=== PATIENT | male | born 1950 | race Caucasian/White ===

== ENCOUNTER 2018-04-08 08:45 | Day surgery (SDC) | payer MEDICARE, OTHER, SELFPAY ==
[2018-04-07 10:13] VITALS: BMI 30.7
[2018-04-08] VITALS (7 sets, daily range): BP systolic 123–152; BP diastolic 74–98; PULSE 72–91; RESP 7–22; TEMP 36.1–36.6; O2SAT 91–96; BMI 30.7
[2018-04-08] MEDS: LACTATED RINGERS 1,000 ML 42 ML IV ×2 (09:38→11:10)
--- NOTE | 2018-04-08 09:44 | PM.PREOP ---
Pre-operative Note Interval Note Pre-op Check: Yes History & Physical Reviewed by Physician Changes: No
[2018-04-08] MEDS: fentaNYL 100 MCG/2 ML INJ IV (09:50)
[2018-04-08] MEDS: MIDAZOLAM 2 MG/2 ML VIAL IV (09:50)
[2018-04-08] MEDS: CEFAZOLIN 2 GM/100 ML FROZ.PIGGY IV (10:20)
--- NOTE | 2018-04-08 10:38 | SUR.PREOP ---
Block start time [0930] . Monitoring initiated and maintained throughout procedure. Oxygen and medications given per anesthesiologist instructions. Patient remained stable throughout procedure, no adverse reactions noted. Block end time [1002]. Per Dr Browning. Oxygen 2l/cannula throughout the procedure. Block unsuccessful. hematoma right lateral neck noted by Dr. Miramontes pressure applied no increased swelling noted at completion of procedure.
--- NOTE | 2018-04-08 10:38 | SUR.OPER ---
Beach chair with Alli/Kennedy shoulder positioner. Lower body on padded OR bed. Head in foam padded head cradle, secured with straps. Non-operative arm secured <90 degrees abduction. Pillow under knees. Safety belt at thigh. Cloth tape over blanket over lower legs.
[2018-04-08] MEDS: SODIUM CHLORIDE IRRIG SOLUTION 3,000 ML, EPINEPHrine 1 MG IRR (10:47)
[2018-04-08] MEDS: BUPIVACAINE 0.5% W/ EPI (PF) VIAL 30 ML INJ (10:48)
--- NOTE | 2018-04-08 11:27 | P.OP_ITS ---
Operative Date/Time/Diagnoses Date of procedure: 04/08/18 Time of procedure: 10:00 Pre-op diagnosis: Right shoulder impingement as well as AC joint arthritis Post-op diagnosis: same Procedure & Clinicians Procedure: Right shoulder arthroscopic subacromial decompression, extensive debridement, distal clavicle excision. Same procedure as scheduled: Yes Indications: Right shoulder subacromial impingement as well as painful AC joint arthritis and glenohumeral joint arthritis. Surgeon: Anthony Cintron Principal Technical Writer: Aliyah Prescott Click Yes if Unassisted: No Anesthesia Type: General Operative Notes Findings: Partial tear to the supraspinatus on the articular surface but less than 50%. No sign of any significant bursal sided tears. Arthritic changes to the glenohumeral joint and more significantly the AC joint with inferior osteophytes. Lesion in the acromial arch. Inflamed subacromial and subdeltoid bursa. Some degenerative fraying of the labrum but no sign of any slap tear or significant biceps tearing. No loose bodies. No Bankart tears. Closure Type: primary Specimen(s): none sent Estimated Blood Loss (mL): 5 Blood products transfused: none Procedure in detail: On date of service, Patient was met in the holding area. The operative site was signed and witnessed by the OR staff. The surgeries once again discussed with the patient and any remaining questions they had were answered fully. Patient was taken back to the operating theater and placed on the operating table in a supine position. Great care was taken to ensure that all bony prominences were properly padded. Patient was then placed into the beach chair position. The head and neck were properly positioned and secured. A timeout was performed verifying patient's name, procedure, and the operative site. The upper extremity was then prepped and draped in the normal sterile fashion. Previously, the bony anatomy and portal sites were marked out as well as injected with Marcaine with epinephrine. An 11 blade was used to make an incision in the posterior aspect of the shoulder. The camera was placed, and a diagnostic shoulder scope was performed. Findings listed above. Next under direct visualization, a anterior portal was made. Next the camera was placed into the subacromial space. A lateral portal was obtained under direct visualization. A combination of the shaver and vapor wand , a debridement of the inflamed tissue as well as inflamed bursa was performed. The lateral gutter was also cleaned out. This gave us good visualization of the bursal aspect of the rotator cuff as well as the acromial arch. There was an obvious impingement lesion in the acromial arch. Next we turned our attention to the subacromial decompression. Next, a mechanical rasp was then used to do a subacromial decompression. This allowed us to convert the acromion to a type I acromial. This also allowed us to shave down the bony lesion in the acromial space. The rasp was placed into the lateral portal as well as the anterior portal in order to do a complete subacromial decompression. We next turned our attention to the distal clavicle. Using the shaver in the vapor wand we were able to clean out all the soft tissue around the distal clavicle as well as into the a.c. joint. This gave us good visualization of the arthritic changes to the distal clavicle as well as good of the a.c. joint allowing us to assess our distal clavicle excision. Of the inferior osteophytes coming off the distal clavicle. Using the mechanical rasp in the anterior portal, we were able to remove the inferior osteophytes as well as do a distal clavicle excision. The camera was then placed into the anterior portal which gave us a direct visualization of the a.c. joint allowing us to assess the distal clavicle excision. We then turned our attention to the rotator cuff tear. There was no signs of any bursal sided tears. The shoulder was then taken through range of motion and there was no sign of any additional impingement. Next, the suprascapular nerve was blocked. Patient's shoulder was then cleaned dried and dressed and patient was taken to the PACU in stable condition. Complications: none Condition: stable Disposition: PACU Plan for aftercare: Patient will follow our postoperative protocol for subacromial decompression with distal clavicle excision.
[2018-04-08] MEDS: fentaNYL 100 MCG/2 ML INJ 50 MCG IV (11:39)
[2018-04-08] MEDS: OXYCODONE/ACETAMINOPHEN 5/325 TABLET 1 TAB PO (11:52)
== END 2018-04-08 13:25 | disposition home or self-care (01) ==
PROVIDERS: Visit Provider Orthopaedic Surgery
PROC: (CPT 29805; principal; 2018-04-08 10:00)
DX: M75.41 Impingement syndrome of right shoulder (principal); M19.011 Primary osteoarthritis, right shoulder; E03.9 Hypothyroidism, unspecified; I10 Essential (primary) hypertension; F33.41 Major depressive disorder, recurrent, in partial remission
CPT/HCPCS: 29823; 29826; J0171; J0330; J0690; J1100; J1170; J2250; J2405; J2704; J3010

== ENCOUNTER → 2019-06-07 13:01 | Outpatient (CLI) | payer MEDICARE, OTHER, SELFPAY ==
--- NOTE | 2019-06-07 | DI.RAD.S_ITS ---
PROCEDURE: FL BARIUM SWALLOW W SPEECH INDICATIONS: Other dysphagia TECHNIQUE: Examination was conducted in conjunction with speech pathology per standard protocol. In the lateral projection, filming was performed of the patient swallowing. AP projection filming may also be performed with patient swallowing. COMPARISON: None. FINDINGS: Function: The oral preparatory phase appears normal, with proper containment. The subsequent oral propulsive phase, pharyngeal phase, and esophageal phase of swallowing also appear normal with all proffered substances. No laryngotracheal penetration or aspiration. No pathologic vallecular pooling. Morphology: No cricopharyngeal bar is identified. No cervical esophageal webs. No Zenker's diverticulum. No strictures. IMPRESSION: Normal examination, a source of current dysphagia is not seen. Please also refer to the dedicated speech therapy swallowing evaluation report that would be independently generated. Dictated by: Micah Muñiz M.D. on 06/07/2019 at 14:16 Approved by: Micah Muñiz M.D. on 06/07/2019 at 14:17
--- NOTE | 2019-06-09 13:05 | ST.SWALLOW ---
Visit Care Team Role Provider Type Romina Goins MD Primary Care Provider Non-Staff Referring Provider Specialty: Family Practice Address: [address] [place] [address], [id number] Email: Endy Hernandez MD Attending Provider Physician Specialty: Ear, Nose, Throat Address: [address] [place] [address], [id number] Email: [email or web address] Modified Barium Swallow Study WASTEWATER OPERATOR Modified Barium Swallow Study Start: 06/07/19 14:15 Freq: Status: Active Protocol: Document 06/07/19 14:16 LNK (Rec: 06/07/19 14:25 LNK [email or web address]) Modified Barium Swallow Study Total Time Visit Start Time 13:30 Visit Stop Time 13:50 Total Visit Minutes 20 Visit Information Plan of Care Dates 05/18/19-08/16/19 Referral Referring Physician Endy Hernandez MD, ENT Reason for Referral dysphagia Setting Setting Outpatient Care Patient Information Identification Type Name,Picture Patient History Pt reports a history of dysphagia following a tonsilectomy/UPPP in 1999. On 12/14/18, pt had a MBS study completed at [facility]. Swallowing therapy was recommended, but pt did not follow up. Laryngoscopy performed by ENT indicated all structures and functioning to be WNL. Pt notes that he does not have difficulty with solids when eating. He is only able to drink liquids in very small sips. if he drinks a larger amount he will choke and he will cough for a long time A clinical swallowing assessment was completed on 05/18/19. During that evaluaton swallowing thin liquids in a small amount did not elicit coughing. However when asked to drink a normal sized swallow, the pt immediately presented with a choke, wet voicing and gulps to try to swallow. This was followed by significant coughing. His vocal quality was very wet as though water had entered the airway and was on or near the vocal folds. Suspect that he aspirated at that point. Recommended MBSS to determine aspiration risk. [ End ] Subjective Observations Pt was seated in the fluoroscopy chair. Procedures and instructions were described to the pt. He indicated that he understood and agreed to proceed. Patient Positioning Position View Lateral Imaging Lateral View Textures Administered Trials Presented Thin Liquid via Spoon,Thin Liquid via Cup,Thin Liquid via Straw,[place] Liquid via Spoon ,[place] Liquid via Cup,Pudding Thick Liquid via Spoon, Regular Textures Oral Phase Source: MBSIMP (TM) (C) Bolus Specific Scoring Grid Lip Closure WFL Tongue Control During Bolus Hold WFL Bolus Prep/Mastication WFL Bolus Transport/Lingual Motion WFL A/P Lingual Propulsion Delay No Oral Residue Mild Impairment Residue Clearing Mild Impairment Nasal Regurgitation No Additional Oral Phase Observations Pt's OM examination noted structures and diadochokinesis to be WNL. Pt has natural teeth in good hygiene. Pharyngeal Phase Source: MBSIMP (TM) (C) Bolus Specific Scoring Grid Delayed Initiation of Pharyngeal Swallow No Soft Palate Elevation WFL Tongue Base Strength/Range of Motion Moderate Impairment Residue Along the Tongue Base Yes: Consistent across all trials Clearance of Residue Along Tongue Base Moderate Impairment Laryngeal Elevation WFL Anterior Hyoid Movement Severe Impairment Epiglottic Range of Motion Moderate Impairment Vallecular Residue Yes: Consistent across all trials Clearance of Vallecular Residue Moderate Impairment Laryngeal Vestibular Closure Moderate Impairment Pharyngeal Stripping Wave Moderate Impairment Posterior Pharyngeal Wall Residue Yes: Consistent across all trials Clearance of Posterior Pharyngeal Wall Moderate Impairment Residue Upper Esophageal Sphincter Opening Moderate Impairment Residue in the Pyriform Sinuses Unable to observe pyriform sinuses Esophageal Clearance Upright Position Minimal Impairment Pharyngoesophageal Backflow Observed Residue noted at UES consistent across all trials Additional Pharyngeal Phase Observations The pt's soft palate made adequate pharyngeal contact to seal the nasopharynx. The overall bulk of the velum was reduced secondary to UPPP. Throughout the MBSS there were pharyngeal anatomical differences noted. There was consistent pooling at the posterior base of tongue secondary to weak linguapharyngeal contact. The epiglottis appeared to be smaller than expected and the UES seemed to be located higher in the pharynx than typical, at the horizontal level of the arytenoids. Pyriform sinuses were not observed. Delayed swallow reflex with premature spillage to the valeculla was observed. Linguapharyngeal contact was weak with valecullar pooling post-swallow. Laryngeal elevation was adequate. However, there was no forward hyoid movement directly impacting epiglottal inversion and UES opening. Epiglottal inversion varied from minimal to partially complete, depending on the bulk of the bolus. Laryngeal penetration was observed with all liquid trials as well as residual flow from the valeculla. Penetration increased with larger bolus sizes. Residue was noted on the anterior wall of the thyroid cartilage. Cued cough or throat-clearing was ineffective in clearing the residue. Pharyngeal residue was observed at the base of tongue, valeculla, posterior pharyngeal wall, within the vestibule, and within the EUS opening. No penetration was observed with solid trials. No aspiration was observed. The UES residue may be due to result of reduced duration of the UES opening/extension, restricting the amount of bolus that can pass to the esophagus. The pt has reported that lately, when he swallows, he needs to swallow harder than usual. A/P View Clinical Impressions Dysphagia Type moderate to severe pharyngeal dysphagia Findings The pt is at high risk for aspiration even though aspiration was not directly observed during this MBSS. The aspiration risk appears to be related to the position of the UES at the level of the laryngeal vestibule/arytenoids . If the UES is restricting flow to the esophagus, there would be overflow , which increases the risk of aspiration. An alternative possibility may be related to the pt's UPPP surgery. Assuming there is scar tissue from the procedure , there is likely reduced sensation in the palatopharynx , which could effect awareness of the bolus. The pt noted that while he often chokes on water, he can drink beer without difficulty. The beer' s carbonation would provide sensory information to aid in bolus control. Recent research has been presented supporting the benefit of cold, sour and carbonated beverages on pharyngeal contraction and UES opening . Swallow therapy is recommend to teach the pt compensatory swallow techniques. Increased frequency and intensity of treatment is recommended. Additionally, NNME is recommended in conjunction with swallow exercises and compensatory strategies. The goal of therapy would be to strengthen the base of tongue/ linguapharyngeal contact. This woud target movement of the hyoid bone, greater epiglottal inversion/seal of vestibule, increasing the hyoid movement and increasing UES opening for bolus flow. Thereby reducing the risk for aspiration. Rehabilitation Potential Good Patient Appropriate for Therapy Yes Recommendations Treatment Plan Therapy Recommendations Outpatient Speech Therapy, Lingual Exercises,Base of Tongue Exercises,Compensatory Strategy Education,Other Additional Therapy Recommendations NNME therapy Recommended Referrals Primary Care Physician,GI Consult,ENT Consult Compensatory Strategies Recommendations Supersupraglottic Swallow, Mendelsonn Maneuver,Small Bites and Sips Short Term Goals Pt will participate in a structured swallow therapy program designed to increase laryngopharyngeal strength and range of motion reducing aspiration risk. The pt will report fewer instances of choking with water.
== END ==
PROVIDERS: PCP Family Medicine; Referring Provider Family Medicine; Visit Provider Otolaryngology
DX: R13.19 Other dysphagia (principal)
CPT/HCPCS: 74230; 92611

== ENCOUNTER 2019-06-24 14:30 | Outpatient (RCR) | payer MEDICARE, OTHER, SELFPAY ==
--- NOTE | 2019-05-18 18:33 | ST.IPCSEOM ---
Visit Care Team Role Provider Type Romina Goins MD Primary Care Provider Non-Staff Specialty: Family Practice Address: [address] [place] [address], [id number] Email: Endy Hernandez MD Attending Provider Physician Referring Provider Specialty: Ear, Nose, Throat Address: [address] [place] [address], [id number] Email: [email or web address] Diagnoses Other dysphagia (05/18/19) Past Medical History (Last Updated 04/07/18 @ 10:17 by Janny Pan RN) Arthritis of right acromioclavicular joint (Acute Medical) Arthritis of right shoulder region (Acute Medical) Depression (Acute Medical) HTN (hypertension) (Acute Medical) Impingement syndrome of right shoulder (Acute Medical) Osteoarthritis (Acute Medical) Thyroid disease (Acute Medical) Speech-Language Pathology Swallow Evaluation LOAN BROKER Clinical Swallow Evaluation Start: 05/18/19 18:09 Freq: Status: Active Protocol: Document 05/18/19 18:09 LNK (Rec: 05/18/19 18:33 LNK [email or web address]) Clinical Swallow Evaluation Session Time Visit Start Time 14:30 Visit Stop Time 15:20 Total Visit Minutes 50 Visit Information Visit Number 1 Plan of Care Dates 05/18/19-08/16/19 Referral Referring Physician Endy Hernandez MD, ENT Reason for Referral dysphagia Setting Assessment Location Outpatient Care Visit Type Note Type Initial Evaluation Next Note Type Next Note Type Re-Evaluation Patient Information Identification Type Name,Picture History Pt reports a history of dysphagia following a tonsillectomy/UPPP in 1999. On , pt had a MBS study completed at [facility]. Swallowing therapy waa recommended, but pt did not follow up. Laryngoscopy performed by ENT indicated all structures and functioning to be WNL. Pt notes that he does not have difficulty with solids when eating. He is only able to drink liquids in very small sips. if he drinks a larger amount he will choke and he will cough for a long time Subjective Observations Pt arrived on time and was taken to a treatment room. Evaluation Liquids Trialed Thin Administration Type Cup Single Sip,Controlled Cup Sip Oral Impairment WNL Oral Phase Comments View of the pt's velum/pharynx indicated a large area A-P. Additionally there was no uvula, the velum was a smooth arch with anterior faucial pillars missing. No hypernasal resonance was observed. The pt reported that liquids do not enter nor come out of his nose when drinking. Pharyngeal Impairment Severely Impaired Pharyngeal Strategies Sitting Upright (90 deg),Small Bites and Sips Pharyngeal Phase Comments Upon palpation, the pt's hyolaryngeal system appears to elevate and has forward movement of the hyoid bone. He presents with a very audible swallow. His swallow of thin liquids in a small amount did not elicit coughing . However when asked to drink a normal sized swallow, the pt immediately presented with a choke, wet voicing and gulps to try to swallow. This was followed by significant coughing. His vocal quality was verywet as though water had entered the airway and was on or near the vocal folds. Suspect that he aspirated at that point. Pt reports that if he tries to tuck his chin, he is unable to swallow at all. Turning his head left or right when swallowing are ineffective. Recommend an MBS as soon as possible to determine the status of the pt's pharyngeal swallow as well as to determine aspiration risk. Findings Dysphagia Type pharyngeal Diet Recommendations Comments continue current diet Aspiration Precautions Recommended Precautions Small Bites/Sips Treatment Plan Placement Recommendations after Outpatient Therapy Discharge Appropriate for Therapy Yes Therapy Recommendations Recommend MBSS as soon as possible Dysphagia therapy POC to be determined after MBSS LOAN BROKER Follow Up after MBSS Referrals/Other Recommended Referrals Primary Care Physician,ENT Consult
--- NOTE | 2019-06-24 15:45 | ST.IPDYTX ---
Visit Care Team Role Provider Type Romina Goins MD Primary Care Provider Non-Staff Specialty: Family Practice Address: [address] [place] [address], [id number] Email: Endy Hernandez MD Attending Provider Physician Referring Provider Specialty: Ear, Nose, Throat Address: [address] [place] [address], [address] Email: [email or web address] SAP PORTAL ARCHITECT Dysphagia Treatment SAP PORTAL ARCHITECT Dysphagia Treatment Start: 05/18/19 18:09 Freq: Status: Active Protocol: Document 06/24/19 15:28 LNK (Rec: 06/24/19 15:45 LNK [email or web address]) Dysphagia Treatment Session Time Visit Start Time 14:30 Visit Stop Time 15:30 Total Visit Minutes 60 Visit Information Visit Number 05/18 Plan of Care Dates 05/18/19-08/16/19 Setting Assessment Location Outpatient Care Visit Type Note Type Treatment Note Next Note Type Next Note Type Treatment Note Patient Information Identification Type Name,Picture Subjective Observations Prabhakar and his partner were seen for dysphagia therapy following MBSS. They reviewed by MBSS video with this SAP PORTAL ARCHITECT describing the images. Initially when seen on 05/18/19 Prabhakar reported a history of dysphagia following a tonsilectomy/UPPP in 1999. On 12/14/18, pt had a MBS study completed at [facility]. Swallowing therapy waa recommended, but pt did not follow up. Treatment Treatment Activities No PO trials were assessed. The MBSS was reviewed, pointing out several penetrations into the laryngeal vestibule. The MBSS results indicated, Prabhakar's swallow of thin liquids in a small amounts did not elicit coughing. However when asked to drink a normal sized swallow, the pt immediately presented with a choke, wet voicing and gulps to try to swallow. This was followed by significant coughing. His vocal quality was very wet as though water had entered the airway and was on or near the vocal folds. Suspect that he aspirated at that point. Assessment Patient Response to Treatment Excellent Rehab Potential Excellent Diet Recommendations Recommendations Continue Current Diet Aspiration Precautions Recommended Precautions Small Bites/Sips,Double Swallow Treatment Plan Appropriate for Continued Therapy No Dysphagia Goals Prabhakar was able to identify the instances of penetration. He was able to understand how penetration into the laryngeal vestibule is related to his frequent throat-clearing. Following the review of the video, three linguapharyngeal exercises were recommended: the Shaker, Back of tongue exercise and Rapid Jaw Opening . Each exercise was demonstrate followed by the pt executing each successfully. WIll follow pt 1x/week for three weeks and then extend more weeks between session.
--- NOTE | 2019-11-08 10:39 | ST.IPDYTX ---
Visit Care Team Role Provider Type Romina Goins MD Primary Care Provider Non-Staff Specialty: Family Practice Address: [address] [place] [address], [id number] Email: Endy Hernandez MD Attending Provider Physician Referring Provider Specialty: Ear, Nose, Throat Address: [address] [place] [address], [address] Email: [email or web address] LEGAL SPECIALIST Dysphagia Treatment LEGAL SPECIALIST Dysphagia Treatment Start: 05/18/19 18:09 Freq: Status: Active Protocol: Document 11/08/19 10:37 LNK (Rec: 11/08/19 10:38 LNK [email or web address]) Dysphagia Treatment Patient Information Subjective Observations Prabhakar and his partner were seen for dysphagia therapy following MBSS. They reviewed by MBSS video with this LEGAL SPECIALIST describing the images. Initially when seen on 05/18/19 Prabhakar reported a history of dysphagia following a tonsilectomy/UPPP in 1999. On 12/14/18, pt had a MBS study completed at [facility]. Swallowing therapy waa recommended, but pt did not follow up. Treatment Plan Appropriate for Continued Therapy No Dysphagia Goals Discharge from therapy. Prabhakar has not been seen since .
== END 2019-11-09 10:57 ==
LOC: SP 14:30
PROVIDERS: PCP Family Medicine; Referring Provider Otolaryngology; Visit Provider Otolaryngology
DX: R13.19 Other dysphagia (principal)
CPT/HCPCS: 92526; 92610

== ENCOUNTER → 2022-01-20 15:11 | Outpatient (CLI) | payer MEDICARE, OTHER, SELFPAY ==
--- NOTE | 2022-01-20 | DI.MRI.S_ITS ---
PROCEDURE: MR WRIST LT WO CON INDICATIONS: CARPAL TUNNEL SYNDROME TECHNIQUE: Noncontrast coronal proton density fast spin echo and T2 fast spin echo with fat saturation; coronal 3-D gradient echo, axial T1 spin echo and T2 fast spin echo with fat saturation, sagittal T1 spin echo through the wrist. COMPARISON: None. FINDINGS: Image quality: Excellent. Bones and cartilage: The carpal bones are normally aligned. No bone marrow contusions or fractures. No evidence for avascular necrosis. Osteoarthritic changes are noted throughout wrist joints with joint space narrowing and subchondral sclerosis. Carpal ligaments: The scapholunate and lunotriquetral ligaments appear intact. In the absence of intra-articular contrast, the extrinsic carpal ligaments are not well identified. On sagittal images, the pisohamate ligament appears intact. Triangular fibrocartilage complex: Degenerative changes are noted within triangular fibrocartilage. No definite TFCC tear is seen. The adjacent meniscal homolog appears normal in the absence of intra-articular contrast. The extensor carpi ulnaris tendon is normal in location and morphology. Tendons and soft tissues: There is palmar bowing of the flexor retinaculum. Median nerve flattening the level of the flow of hamate is seen. Increased cross-sectional area of topple tunnel is noted at the level of carpal tunnel all it. Mild edema is also seen within carpal tunnel. The ulnar nerve appears normal within Guyon's canal. All six extensor tendon compartments demonstrate normal morphology, without pathologic tendon sheath fluid. No soft tissue ganglion cysts. IMPRESSION: 1. Constellation of finding is consistent with patient's clinical diagnosis of carpal tunnel syndrome. 2. Mild wrist joint osteoarthritic changes. No fracture or dislocation. No evidence of a vascular necrosis. 3. Intrinsic and extrinsic wrist ligaments are grossly intact. 4. Degenerative changes are noted in triangular fibrocartilage. No definite TFC tear. 5. Extensor and flexor tendons are normal in size and signal intensity. Dictated by: Lars Peralta M.D. on 01/20/2022 at 21:12 Approved by: Lars Peralta M.D. on 01/20/2022 at 21:31
== END ==
PROVIDERS: PCP Student in an Organized Health Care Education/Training Program; Referring Provider Orthopaedic Surgery; Visit Provider Orthopaedic Surgery
DX: G56.02 Carpal tunnel syndrome, left upper limb (principal)
CPT/HCPCS: 73221

== ENCOUNTER → 2024-08-04 09:16 | Outpatient (CLI) | payer MEDICARE, OTHER, SELFPAY ==
--- NOTE | 2024-08-04 09:23 | DI.CT.S_ITS ---
PROCEDURE: CT SOFT TISSUE NECK W CON INDICATIONS: DYSPHAGIA TECHNIQUE: After the administration of intravenous contrast, 3.0 mm axial sections acquired from the sella to the aortic arch. Additional oblique axial 3.0 mm sections acquired through the pharynx. 3 mm thick coronal and sagittal reformats were generated. For radiation dose reduction, the following was used: automated exposure control. COMPARISON: None. FINDINGS: Image quality: There is artifact associated with the metallic hardware. Artifact from the metallic hardware is reduced by metal reconstruction algorithm. There is streak artifact seen through the level of the shoulders. Lymph nodes: No enlarged lymph nodes seen throughout the neck. Vessels: Visualized vasculature appears patent. Neck spaces: The oropharynx, nasopharynx, and pharynx demonstrate no mucosal lesions. The vocal cords, false vocal cords, pyriform sinuses, epiglottis, vallecula, and tongue base all appear normal. Extramucosal spaces appear unremarkable. Glands: The parotid and submandibular glands appear normal. Thyroid gland demonstrates no significant abnormality. Miscellaneous: Visualized brain and orbits appear normal. Lung apices appear clear. Superficial soft tissues appear normal. Bones: No suspicious bony lesions. Visualized sinuses and mastoids appear unremarkable. Cervical spine degenerative changes are seen, with significant bridging anterior osteophytes at C5-C6. IMPRESSION: No masses or enlarged lymph nodes are seen. Significant bridging anterior osteophytes can be seen at C5-C6. Dictated by: Nestor Sy M.D. on 08/06/2024 at 11:51 Approved by: Nestor Sy M.D. on 08/06/2024 at 11:53
[2024-08-04 10:05] LABS: Estimated Glomerular Filt Rate > 60 mL/min (>60)
--- NOTE | 2024-08-04 13:02 | ST.SWALLOW ---
Visit Care Team Role Provider Type Essie Nettles MD Primary Care Provider Non-Staff Specialty: Medical Address: [address] [place] [address], [id number] Email: Endy Hernandez MD Attending Provider Physician Referring Provider Specialty: Ear, Nose, Throat Address: [address] [place] [address], [id number] Email: [email or web address] Modified Barium Swallow Study SECOND OFFICER Modified Barium Swallow Study Start: 08/04/24 11:08 Freq: Status: Active Protocol: Document 08/04/24 11:10 LNK (Rec: 08/04/24 13:01 LNK Desktop) Modified Barium Swallow Study Total Time Visit Start Time 10:00 Visit Stop Time 10:45 Total Visit Minutes [address] Hernandez, ENt Setting Setting Outpatient Care Patient Information Identification Type Name,Date of Patient History Pt seen for a Modified Barium Swallow Study by Dr. Hernandez. 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 Pt described frequent throat clearing/coughing when eating or drinking. He stated he has a lot of mucous and PND due to allergies. Pt also noted he has difficulty swallowing pills, large bites of food, meats and liquids, describing a bolus sensation near the sternal notch. In 2020, pt was diagnosed with PD. He denies seeing any rehab therapist (i. e., ST, OT, PT). Pt had MBSS on 06/07/2019 that indicated pharyngeal dysphagia with pt at risk for aspiration secondary to base of tongue weakness and pharyngeal phlegm build-up. Subjective Observations Pt was seated in the fluoroscopy chair with directions and procedures described for him. He indicated he understood and agreed to proceed. Patient Positioning Position View Lat-A/P Imaging Lateral View Textures Administered Trials Presented Extremely Thick Liquid via Spoon (IDDSI 4),Regular (IDDSI 7) Barium Tablet Yes The IDDSI Framework Protocol: IDDSI.1 Oral Impairment Source: The Modified Barium Swallow Impairment Profile (MBSImP??) Lip Closure Interlabial escape; no progression to anterior lip Tongue Control During Bolus Hold Cohesive bolus between tongue to palatal seal Bolus Preparation/Mastication Timely & efficient chewing & mashing Bolus Transport/Lingual Motion Brisk tongue motion Oral Residue Complete oral clearance Location Tongue Initiation of Pharyngeal Swallow Bolus head at posterior laryngeal surface of epiglottis Additional Oral Impairment Observations *OME and DKS were observed to be WNL. *Dentition natural and in good hygiene *Mastication observed with rotary chew pattern. *Good bolus formation, control and AP transition. *Velopharyngeal closure was WNL. 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 Velopharyngeal seal appears to be functional. Pt reports no nasal regurgitation of solids/liquids. Voice is not hypernasal. Pharyngeal Impairment Source: The Modified Barium Swallow Impairment Profile (MBSImP??) Soft Palate Elevation No bolus between soft palate & pharyngeal wall Laryngeal Elevation Part.sup.move.thyroid cart/ part.approx.arytenoids to epiglot.petiole Anterior Hyoid Excursion No anterior movement Epiglottic Movement No inversion Laryngeal Vestibular Closure Incomplete; narrow column air/ contrast in laryngeal vestibule Pharyngeal Stripping Wave Present - complete Pharyngoesophageal Segment Opening Complete distention & complete duration; no obstruction of flow Tongue Base Retraction Narrow column of contrast/air betwn tongue base & post. pharyngeal wall Pharyngeal Residue Complete pharyngeal clearance Location Valleculae Additional Pharyngeal Impairment *Reduced base of tongue Observations retraction strength *Reduced laryngeal elevation with no hyoid movement noted *No epiglottal inversion across all trials *Laryngeal penetration of contrast x 4 with laryngeal residue to the vocal folds (1- 8 Penetration Aspiration Scale rating =5) *Pt able to clear pooled secretions with throat clearing *No overt tracheal aspiration observed *Pt able to hold his breath indicating some vocal fold adduction/airway protection A/P View Textures Administered Trials Presented Thin Liquid via Spoon (IDDSI 0 ) The IDDSI Framework Protocol: IDDSI.1 A/P View Observations Pharyngeal Contraction Complete Esophageal Clearance Upright Position Esophageal retention w/ regtrograde flow below pharyngoesoph segment Vocal Fold Function Good Esophageal Function WFL Additional A-P Observations *Retro flow of liquid barium trial observed near mid chest. Eventually cleared to the stomach *13mm calibrated barium tablet cleared the esophagus in a timely manner Clinical Impressions Dysphagia Type Pharyngeal Findings *Pt presents with mild- moderate pharyngeal dysphagia secondary to reduced strength of tongue base and pharyngeal muscles. Additionally, there was no epiglottal inversion observed with frequent penetration into the larynx. Residue was observed to pool on the vocal folds. Pt was able to clear residue from vocal folds via throat clearing (spontaneous and cued ). *Recommend speech and swallow therapy targeting vocal strengthening of vocal fold adduction and base of tongue to reduce aspiration risk. Additionally, speech therapy is recommended to address pt's reduced intelligibility secondary to PD. Because pt lives in [place], teletherapy practice is recommended. The only practice offering adult teletherapy in this area is Jesenia Beltrán [facility] at [facility] (phone: [phone] /fax: [phone]). Rehabilitation Potential Excellent Patient Appropriate for Therapy Yes Recommendations Diet Liquids Order Thin (IDDSI 0) Diet Order Regular (IDDSI 7) Comments small pieces, chew well, moisture with solids, drink liquid frequently Additional Dietary Needs Single Sips,Controlled Sips Aspiration Precautions Recommended Precautions Upright at 90 Degrees, Alternate Liquids/Solids,Small Bites/Sips Treatment Plan Therapy Recommendations Outpatient Speech Therapy,Base of Tongue Exercises Additional Recommended Referrals GI consult if indicated Therapy Strategy Recommendations Small Bites and Sips,Alternate Liquids/Solids
== END ==
PROVIDERS: PCP Student in an Organized Health Care Education/Training Program; Referring Provider Otolaryngology; Visit Provider Otolaryngology
DX: J38.01 Paralysis of vocal cords and larynx, unilateral (principal); R13.19 Other dysphagia; G20.A1 Parkinson's disease without dyskinesia, without mention of fluctuations; M25.78 Osteophyte, vertebrae
CPT/HCPCS: 36415; 70491; 74230; 82565; 92611; Q9967